=== PATIENT | female | born 1970 | race Caucasian/White ===

== ENCOUNTER 2023-11-20 23:07 | Emergency (ER) | payer OTHER ==
[~2023-11-20] VITALS: Ht 152.4 cm; Wt 76.3 kg
[2023-11-21 00:42] LABS: ANION GAP 15 mmol/L (8-16); CALCIUM, TOTAL 9.3 mg/dL (8.8-10.5); CARBON DIOXIDE 25 mmol/L (22-29); CHLORIDE 105 mmol/L (98-107); CREATININE 0.74 mg/dL (0.60-1.30); GLOMERULAR FILTR. RATE CALC > 60 mL/min (>60); GLUCOSE,RANDOM 102 mg/dL (70-110); POTASSIUM 3.2 mmol/L (3.5-5.1); SODIUM SERUM 145 mmol/L (136-145); UREA NITROGEN, BLOOD 12 mg/dL (7-18)
[2023-11-21 00:49] LABS: ALANINE AMINOTRANSFERASE 22 U/L (12-78); ALKALINE PHOSPHATASE 115 U/L (46-116); ASPARTATE AMINOTRANSFERASE 23 U/L (15-37); BILIRUBIN,TOTAL 0.1 mg/dL (0.1-1.0); LIPASE 49 U/L (16-77); TOTAL PROTEIN, SERUM 8.6 g/dL (6.4-8.2); TROPONIN I-HIGH SENSITIVITY 6 ng/L (<51)
[2023-11-21 00:54] LABS: ALCOHOL, BLOOD (SERUM) 219 mg/dL (0-10)
[2023-11-21 01:41] LABS: LACTIC ACID 2.9 mmol/L (0.4-2.0)
[2023-11-21] MEDS: POTASSIUM CHLORIDE 20 MEQ ER TABLET PO ONE (01:58)
[2023-11-21 02:02] VITALS: BP 136/77; PULSE 85; RESP 16; TEMP 98.1
== END 2023-11-21 02:06 | disposition home or self-care (01) ==
LOC: EMS 23:10
DX: S00.31XA Abrasion of nose, initial encounter (principal); F10.129 Alcohol abuse with intoxication, unspecified; E87.6 Hypokalemia; Y99.8 Other external cause status; I10 Essential (primary) hypertension; F17.210 Nicotine dependence, cigarettes, uncomplicated; X58.XXXA Exposure to other specified factors, initial encounter; Y93.89 Activity, other specified; Y92.89 Other specified places as the place of occurrence of the external cause
CPT/HCPCS: 99283; 80053; 83605; 83690; 84484; 36415; G0480